=== PATIENT | female | born 1970 | race Caucasian/White ===

== ENCOUNTER 2025-02-27 11:28 | Emergency (ER) | payer OTHER ==
[~2025-02-27] VITALS: Ht 142.2 cm; Wt 71.4 kg
[2025-02-27] MEDS ORDERED: OMEP-148 PO (11:41)
[2025-02-27] MEDS ORDERED: QUET25TA PO (11:41)
[2025-02-27] MEDS ORDERED: GABA-1181 PO (11:41)
[2025-02-27] MEDS ORDERED: OLAN10TA74 PO (11:41)
[2025-02-27 12:17] LABS: COVID AG,FIA SOURCE NASAL SWAB
[2025-02-27 12:40] LABS: PLATELET COUNT (AUTO) 228 K/uL (150-450); RED BLOOD CELL COUNT(AUTO) 4.40 MIL/uL (4.00-5.20); RED CELL DISTRIBUTION WIDTH 13.1 % (11.5-14.5); WHITE BLOOD COUNT (AUTO) 6.5 K/uL (4.5-11.0)
[2025-02-27 12:42] LABS: CALCIUM, TOTAL 9.0 mg/dL (8.8-10.5); CREATININE 0.68 mg/dL (0.60-1.30); GLOMERULAR FILTR. RATE CALC > 60 mL/min (>60); GLUCOSE,RANDOM 128 mg/dL (70-110); SODIUM SERUM 147 mmol/L (136-145); UREA NITROGEN, BLOOD 14 mg/dL (7-18)
[2025-02-27 12:55] LABS: TROPONIN I-HIGH SENSITIVITY 4 ng/L (<51)
[2025-02-27 13:06] LABS: SARS-COV2 (COVID) ANTIGEN,FIA Negative (Negative)
[2025-02-27 13:07] LABS: INFLUENZA TYPE A NEGATIVE FOR TYPE A (NEGATIVE); INFLUENZA TYPE B NEGATIVE FOR TYPE B (NEGATIVE)
[2025-02-27] MEDS ORDERED: AMOX500C2 PO (13:40)
[2025-02-27] MEDS ORDERED: OXYM15SP63 NASAL (13:42)
[2025-02-27] MEDS ORDERED: FLUT16SP NASAL (13:42)
[2025-02-27 14:26] VITALS: BP 139/66; PULSE 70; RESP 16; TEMP 98.505320; O2SAT 98
== END 2025-02-27 14:54 | disposition home or self-care (01) ==
LOC: EMS 11:34
DX: J32.9 Chronic sinusitis, unspecified (principal); F12.90 Cannabis use, unspecified, uncomplicated; R06.02 Shortness of breath; J45.909 Unspecified asthma, uncomplicated; F17.210 Nicotine dependence, cigarettes, uncomplicated; F41.9 Anxiety disorder, unspecified; K21.9 Gastro-esophageal reflux disease without esophagitis; Z88.8 Allergy status to other drugs, medicaments and biological substances; Z79.899 Other long term (current) drug therapy; Z20.822 Contact with and (suspected) exposure to COVID-19
CPT/HCPCS: 71045; 80048; 83880; 84484; 85025; 87804; 93005; 99285; 36415-L1; 36415-TC

== ENCOUNTER 2025-07-10 14:01 | Emergency (ER) | payer OTHER ==
[~2025-07-10] VITALS: Ht 142.2 cm; Wt 71.4 kg
[~2025-07-10 14:01] MED LIST: AMOX500C2 PO; FLUT16SP NASAL; GABA-1181 PO; OLAN10TA74 PO; OMEP-148 PO; OXYM15SP63 NASAL; QUET25TA PO
[2025-07-10 14:17] VITALS: BP 123/79; PULSE 88; RESP 18; TEMP 97.5; O2SAT 98
[2025-07-10] MEDS: KETOROLAC TROMETHAMINE 30 MG/ML VIAL IM ONE (16:36)
[2025-07-10] MEDS: LIDOCAINE 5% TRANSDERMAL PATCH TD ONE (16:36)
[2025-07-10] MEDS ORDERED: LIDO-57 TP (17:00)
[2025-07-10] MEDS ORDERED: NAPR-1196 PO (17:00)
== END 2025-07-10 17:20 | disposition home or self-care (01) ==
LOC: EMS 14:01
DX: M25.811 Other specified joint disorders, right shoulder (principal); M19.011 Primary osteoarthritis, right shoulder; J45.909 Unspecified asthma, uncomplicated; F41.9 Anxiety disorder, unspecified; K21.9 Gastro-esophageal reflux disease without esophagitis; I51.9 Heart disease, unspecified; F12.90 Cannabis use, unspecified, uncomplicated; F17.210 Nicotine dependence, cigarettes, uncomplicated; Z79.899 Other long term (current) drug therapy; Z88.5 Allergy status to narcotic agent
CPT/HCPCS: 99283; 73030; 96372; J1885